=== PATIENT | female | born 1990 | race Hispanic/Latino ===

== ENCOUNTER 2018-09-26 21:01 | Emergency (ER) | payer OTHER ==
[2018-09-26] MEDS ORDERED: OCTYL 2-CYANOACRYLATE 1 EACH TP ONE (21:14)
== END 2018-09-26 22:19 | disposition home or self-care (01) ==
LOC: EDH 21:01
DX: S61.215A Laceration without foreign body of left ring finger without damage to nail, initial encounter (principal); W18.39XA Other fall on same level, initial encounter; Y93.89 Activity, other specified; Y92.098 Other place in other non-institutional residence as the place of occurrence of the external cause; Y99.8 Other external cause status
CPT/HCPCS: 12001